=== PATIENT | female | born 1990 ===

== ENCOUNTER 2018-08-29 05:38 | Inpatient (IN) ==
[2018-08-29] MEDS ORDERED: ONDANSETRON 4 MG/2 ML VIAL IV PRN (06:03)
[2018-08-29] MEDS ORDERED: MEPERIDINE 50 MG/1 ML VIAL IV PRN (06:03)
[2018-08-29 06:30] LABS: Basophils % 0.2 % (0.0-0.8); Eosinophils # 0.1 10*3/uL (0.0-0.87); Eosinophils % 1.3 % (0.00-10.9); Hemoglobin 9.8 GM/DL (12.0-16.0); Immature Granulocytes % 0.5 %; Immature Granulocytes Absolute 0.03 #; Lymphocytes % 33.4 % (21.3-54.2); Mean Corpuscular HGB Conc 31.6 GM/DL (32-36); Mean Corpuscular Hemoglobin 28 PG (27-34); Mean Corpuscular Volume 88.3 FL (87-102); Mean Platelet Volume 9.8 FL (9.6-12.0); Monocytes # 0.4 10*3/uL (0.11-0.8); Monocytes % 6.7 % (1.7-12.7); Neutrophils # 3.5 10*3/uL (1.4-7.4); Neutrophils % 57.9 % (38.7-73.9); Platelet Count 299 T/CUMM (130-400); Red Blood Count 3.51 MC/CUMM (3.8-5.5); Red Cell Distribution Width 13.1 % (9.3-17.3)
[2018-08-29] MEDS ORDERED: LACTATED RINGERS 1,000 ML IV SCH (06:30)
[2018-08-29] MEDS: OXYTOCIN/LR 20 UNIT/1,000 ML BAG IV SCH ×2 (06:43→16:59)
[2018-08-29 06:47] LABS: Alanine Aminotransferase 23 U/L (13-56); Albumin 2.3 G/DL (3.4-5.0); Alkaline Phosphatase 233 U/L (45-117); Aspartate Amino Transferase 23 U/L (0-37); Bilirubin,Total < 0.39 MG/DL (0.2-1.0); Blood Urea Nitrogen 14 MG/DL (7-18); Calcium 7.8 MG/DL (8.5-10.1); Glucose 74 MG/DL (74-106); Sodium 136 MMOL/L (136-145); Total Protein 6.8 G/DL (6.4-8.3)
[2018-08-29] MEDS ORDERED: PROMETHAZINE 25 MG/1 ML VIAL IM ONE (08:20)
[2018-08-29] MEDS ORDERED: FAMOTIDINE 20 MG/2 ML VIAL IV ONE (08:20)
[2018-08-29] MEDS ORDERED: NALOXONE 0.4 MG/ML VIAL IV PRN (08:20)
[2018-08-29] MEDS ORDERED: CITRIC ACID/SODIUM CITRATE 30 ML UDCUP PO ONE (08:20)
[2018-08-29] MEDS ORDERED: hydrOXYzine HCL 25 MG/1 ML VIAL IM PRN (08:20)
[2018-08-29] MEDS ORDERED: diphenhydrAMINE 50 MG/1 ML VIAL IV PRN (08:20)
[2018-08-29] MEDS ORDERED: ePHEDrine 50 MG/ML AMP IV PRN (08:20)
[2018-08-29] MEDS ORDERED: fentaNYL 2 MCG/ROPIV 0.2% EPID 100 ML EPIDURAL SCH (08:30)
[2018-08-29 11:46] LABS: Apearance,Urine CLEAR (Clear); Bilirubin,Urine Negative (Negative); Blood, Urine Negative (Negative); Glucose,Urine (UA) Negative (Negative); Ketones,Urine Negative (Negative); Mucus,Urine Occasional /LPF (Occasional); Nitrite,Urine Negative (Negative); Protein,Urine 30 MG/DL; RBC,Urine 4 /HPF (0-4); Squamous Epithelial Cell,Urine Occasional /HPF (0-10); Urine Color Yellow (Yellow); Urine Specific Gravity 1.028 (1.001-1.035); Urine Urobilinogen < 2.0 EU/DL (0.2-1.0); WBC,Urine <1 /HPF (0-6)
[2018-08-29] MEDS ORDERED: miSOPROStol 200 MCG TABLET ONE (14:07)
[2018-08-29] MEDS ORDERED: METHYLERGONOVINE 0.2 MG/1 ML AMP ONE (14:08)
[2018-08-29] MEDS ORDERED: CARBOPROST TROMETHAMINE 250 MCG/ML AMP IM ONE (14:08)
[2018-08-29] MEDS ORDERED: METHYLERGONOVINE 0.2 MG/1 ML AMP IM ONE (15:00)
[2018-08-29] MEDS ORDERED: ACETAMINOPHEN/CODEINE 300-30 MG TABLET PO PRN (17:01)
[2018-08-29] MEDS ORDERED: BISACODYL 10 MG SUPP RECTAL PRN (17:01)
[2018-08-29] MEDS ORDERED: MEASLES/MUMPS/RUBELLA VACCINE 0.5 ML VIAL SUBCUT ONE (17:01)
[2018-08-29] MEDS ORDERED: oxyCODONE/ACETAMINOPHEN 5-325 MG TABLET PO PRN ×2 (17:01)
[2018-08-29] MEDS ORDERED: DIPH/TET/ACEL PERT BOOSTER VACCINE 0.5 ML VIAL IM ONE (17:01)
[2018-08-29] MEDS ORDERED: RHO(D) IMMUNE GLOBULIN 300 MCG SYRINGE IM ONE (17:01)
[2018-08-29] MEDS ORDERED: BENZOCAINE 20%/MENTHOL 0.5% SPRAY 56 GM CAN TOP PRN (17:01)
[2018-08-29] MEDS ORDERED: LANOLIN 50% CREAM 0.3 OZ TUBE TOP PRN (17:01)
[2018-08-29] MEDS ORDERED: ACETAMINOPHEN 325 MG TABLET PO PRN (17:01)
[2018-08-29] MEDS ORDERED: WITCH HAZEL PADS 100/JAR TOP PRN (17:01)
[2018-08-29] MEDS ORDERED: HYDROCORTISONE 2.5% RECTAL CREAM 30 GM TUBE TOP PRN (17:01)
[2018-08-29] MEDS: DOCUSATE SODIUM 100 MG CAPSULE PO SCH (20:49)
[2018-08-30] MEDS: IBUPROFEN 800 MG TABLET PO PRN ×3 (03:16→23:55)
[2018-08-30 06:00] LABS: Basophils % 0.1 % (0.0-0.8); Eosinophils # 0.1 10*3/uL (0.0-0.87); Eosinophils % 1.1 % (0.00-10.9); Hematocrit 26.1 VOL% (35.7-47.0); Hemoglobin 8.4 GM/DL (12.0-16.0); Immature Granulocytes % 0.6 %; Immature Granulocytes Absolute 0.06 #; Lymphocytes # 2.3 10*3/uL (1.4-4.0); Lymphocytes % 23.3 % (21.3-54.2); Mean Corpuscular HGB Conc 32.2 GM/DL (32-36); Mean Corpuscular Hemoglobin 28 PG (27-34); Mean Corpuscular Volume 86.7 FL (87-102); Mean Platelet Volume 9.7 FL (9.6-12.0); Monocytes # 0.5 10*3/uL (0.11-0.8); Monocytes % 5.4 % (1.7-12.7); Neutrophils # 6.7 10*3/uL (1.4-7.4); Neutrophils % 69.5 % (38.7-73.9); Platelet Count 232 T/CUMM (130-400); Red Blood Count 3.01 MC/CUMM (3.8-5.5); Red Cell Distribution Width 13.1 % (9.3-17.3); White Blood Count 9.7 T/CUMM (4-12)
[2018-08-30] MEDS: FERROUS SULFATE 325 MG TABLET PO SCH ×2 (08:57→21:18)
[2018-08-30] MEDS: DOCUSATE SODIUM 100 MG CAPSULE PO SCH ×2 (08:57→21:18)
[2018-08-30 10:52] LABS: Hemoglobin 8.7 GM/DL (12.0-16.0)
[2018-08-31 08:30] VITALS: BP 144/77
[2018-08-31] MEDS: FERROUS SULFATE 325 MG TABLET PO SCH (08:47)
[2018-08-31] MEDS: DOCUSATE SODIUM 100 MG CAPSULE PO SCH (08:47)
== END 2018-08-31 12:00 | disposition home or self-care (01) | DRG 807 ==
LOC: N.LDOUT 05:38 → N.LD 05:46 → N.OB 17:07
PROVIDERS: ADMIT Obstetrics & Gynecology; ATTEND Obstetrics & Gynecology

== ENCOUNTER 2021-01-13 00:11 | Inpatient (IN) ==
[2021-01-13] MEDS ORDERED: LACTATED RINGERS 1,000 ML IV ONE ×2 (00:20→07:22)
[2021-01-13] MEDS ORDERED: MEPERIDINE 50 MG/1 ML VIAL IV PRN (00:20)
[2021-01-13] MEDS ORDERED: ONDANSETRON 4 MG/2 ML VIAL IV PRN ×2 (00:20→16:01)
[2021-01-13] MEDS ORDERED: AMPICILLIN INJ 2,000 MG in SODIUM CHLORIDE 0.9% 100 ML IV ONE ×2 (00:27→04:00)
[2021-01-13] MEDS ORDERED: LACTATED RINGERS 1,000 ML IV SCH (00:30)
[2021-01-13 00:48] LABS: Eosinophils # 0.1 10*3/uL (0.0-0.87); Eosinophils % 0.9 % (0.00-10.9); Hematocrit 30.9 VOL% (35.7-47.0); Hemoglobin 9.6 GM/DL (12.0-16.0); Immature Granulocytes % 0.7 %; Immature Granulocytes Absolute 0.05 #; Lymphocytes # 1.7 10*3/uL (1.4-4.0); Lymphocytes % 24.8 % (21.3-54.2); Mean Corpuscular HGB Conc 31.1 GM/DL (32-36); Mean Corpuscular Volume 90.1 FL (87-102); Mean Platelet Volume 8.8 FL (9.6-12.0); Monocytes % 7.2 % (1.7-12.7); Neutrophils % 66.4 % (38.7-73.9); Platelet Count 326 T/CUMM (130-400); Red Blood Count 3.43 MC/CUMM (3.8-5.5); Red Cell Distribution Width 14.9 % (9.3-17.3); White Blood Count 6.9 T/CUMM (4-12)
[2021-01-13 01:12] LABS: Alanine Aminotransferase 26 U/L (13-56); Albumin 2.5 G/DL (3.4-5.0); Alkaline Phosphatase 208 U/L (45-117); Aspartate Amino Transferase 33 U/L (0-37); Bilirubin,Total < 0.39 MG/DL (0.2-1.0); Blood Urea Nitrogen 11 MG/DL (7-18); Calcium 8.2 MG/DL (8.5-10.1); Carbon Dioxide 25 MMOL/L (21-32); Estimated Glom Filtration Rate 144 ML/MIN; Glucose 78 MG/DL (74-106); Osmolality,Calculated 274.5 MOS/KG (273-304); Potassium 3.8 MMOL/L (3.5-5.1); Sodium 139 MMOL/L (136-145); Total Protein 6.6 G/DL (6.4-8.2)
[2021-01-13 03:00] LABS: Hypochromasia 1+; Microcytosis 1+; Platelet Estimate Normal
[2021-01-13] MEDS ORDERED: OXYTOCIN/LR 20 UNIT/1,000 ML BAG IV SCH (04:00)
[2021-01-13] MEDS ORDERED: CITRIC ACID/SODIUM CITRATE 30 ML UDCUP PO ONE (07:22)
[2021-01-13] MEDS ORDERED: FAMOTIDINE 20 MG/2 ML VIAL IV ONE (07:22)
[2021-01-13] MEDS ORDERED: ePHEDrine 50 MG/ML VIAL IV PRN (07:23)
[2021-01-13] MEDS ORDERED: diphenhydrAMINE 50 MG/1 ML VIAL IV PRN (07:23)
[2021-01-13] MEDS ORDERED: LACTATED RINGERS 250 ML IV PRN (07:23)
[2021-01-13] MEDS ORDERED: ONDANSETRON 4 MG/2 ML VIAL IV ONE (07:23)
[2021-01-13] MEDS ORDERED: NALOXONE 0.4 MG/ML VIAL IV PRN (07:23)
[2021-01-13] MEDS ORDERED: fentaNYL 2 MCG/ROPIV 0.2% EPID 100 ML EPIDURAL SCH (07:30)
[2021-01-13] MEDS ORDERED: miSOPROStoL 200 MCG TABLET ONE (08:40)
[2021-01-13] MEDS ORDERED: TRANEXAMIC ACID 1,000 MG/10 ML VIAL ONE (08:40)
[2021-01-13] MEDS ORDERED: METHYLERGONOVINE 0.2 MG/1 ML AMP ONE (08:40)
[2021-01-13] MEDS ORDERED: CARBOPROST TROMETHAMINE 250 MCG/ML AMP IM ONE (08:40)
[2021-01-13] MEDS ORDERED: SODIUM CHLORIDE 0.9% 0 ML IV ONE (08:41)
[2021-01-13] MEDS: AMPICILLIN INJ 1,000 MG in SODIUM CHLORIDE 0.9% 100 ML IV SCH ×2 (08:48→13:21)
[2021-01-13 10:24] LABS: Bilirubin,Urine Negative (Negative); Blood, Urine Negative (Negative); Glucose,Urine (UA) Negative (Negative); Ketones,Urine 5 mg/dL (Negative); Mucus,Urine Few /LPF (Occasional); Nitrite,Urine Negative (Negative); Protein,Urine Negative; RBC,Urine <1 /HPF (0-4); Squamous Epithelial Cell,Urine Occasional /HPF (0-10); Urine Appearance CLEAR (Clear); Urine Color Yellow (Yellow); Urine Specific Gravity 1.031 (1.001-1.035); Urine Urobilinogen < 2.0 EU/DL (0.2-1.0)
[2021-01-13] MEDS ORDERED: OXYTOCIN/LR 30 UNIT/1,000 ML BAG IV ONE (14:55)
[2021-01-13 15:55] LABS: Cord Arterial Blood HCO3 21.7 MMOL/L
[2021-01-13 15:57] LABS: Cord Venous Blood HCO3 22.2 MMOL/L; Cord Venous Blood PCO2 41.7 MMHG; Cord Venous Blood PO2 35.2
[2021-01-13] MEDS ORDERED: RHO(D) IMMUNE GLOBULIN 300 MCG SYRINGE IM ONE (16:01)
[2021-01-13] MEDS ORDERED: LANOLIN 50% CREAM 0.3 OZ TUBE TOP PRN (16:01)
[2021-01-13] MEDS ORDERED: DIPH/TET/ACEL PERT BOOSTER VACCINE 0.5 ML VIAL IM ONE (16:01)
[2021-01-13] MEDS ORDERED: oxyCODONE/ACETAMINOPHEN 5-325 MG TABLET PO PRN ×2 (16:01)
[2021-01-13] MEDS ORDERED: BISACODYL 10 MG SUPP RECTAL PRN (16:01)
[2021-01-13] MEDS ORDERED: ACETAMINOPHEN 325 MG TABLET PO PRN (16:01)
[2021-01-13] MEDS ORDERED: MEASLES/MUMPS/RUBELLA VACCINE 0.5 ML VIAL SUBCUT ONE (16:01)
[2021-01-13] MEDS ORDERED: BENZOCAINE 20%/MENTHOL 0.5% SPRAY 56 GM CAN TOP PRN (16:01)
[2021-01-13] MEDS ORDERED: HYDROCORTISONE 2.5% RECTAL CREAM 30 GM TUBE TOP PRN (16:01)
[2021-01-13] MEDS ORDERED: OXYTOCIN/LR 20 UNIT/1,000 ML BAG IV ONE (16:01)
[2021-01-13] MEDS ORDERED: WITCH HAZEL PADS 100/JAR TOP PRN (16:01)
[2021-01-13] MEDS ORDERED: METHYLERGONOVINE 0.2 MG/1 ML AMP IM ONE (16:10)
[2021-01-13] MEDS: IBUPROFEN 800 MG TABLET PO PRN (19:28)
[2021-01-14] MEDS: DOCUSATE SODIUM 100 MG CAPSULE PO SCH ×3 (00:45→20:58)
[2021-01-14 05:30] LABS: Basophils % 0.1 % (0.0-0.8); Eosinophils # 0.1 10*3/uL (0.0-0.87); Eosinophils % 1.1 % (0.00-10.9); Hematocrit 26.6 VOL% (35.7-47.0); Hemoglobin 8.9 GM/DL (12.0-16.0); Immature Granulocytes % 0.3 %; Immature Granulocytes Absolute 0.03 #; Lymphocytes % 20.7 % (21.3-54.2); Mean Corpuscular HGB Conc 33.5 GM/DL (32-36); Mean Corpuscular Volume 86.1 FL (87-102); Mean Platelet Volume 9.4 FL (9.6-12.0); Monocytes % 5.1 % (1.7-12.7); Neutrophils % 72.7 % (38.7-73.9); Platelet Count 283 T/CUMM (130-400); Red Blood Count 3.09 MC/CUMM (3.8-5.5); Red Cell Distribution Width 14.7 % (9.3-17.3); White Blood Count 9.4 T/CUMM (4-12)
[2021-01-14] MEDS: IBUPROFEN 800 MG TABLET PO PRN (09:02)
[2021-01-15 07:40] VITALS: BP 132/76
[2021-01-15] MEDS: DOCUSATE SODIUM 100 MG CAPSULE PO SCH (08:06)
[2021-01-15] MEDS ORDERED: FERROUS SULFATE 325 MG TABLET PO SCH (09:00)
== END 2021-01-15 12:45 | disposition home or self-care (01) | DRG 560 ==
LOC: N.LD 00:11 → N.OB 18:21
PROVIDERS: ADMIT Obstetrics & Gynecology; ATTEND Obstetrics & Gynecology

== ENCOUNTER 2022-01-13 00:10 | Inpatient (IN) ==
[2022-01-13] MEDS ORDERED: METHYLERGONOVINE 0.2 MG/1 ML AMP IM PRN ×2 (00:50→09:51)
[2022-01-13] MEDS ORDERED: ONDANSETRON 4 MG/2 ML VIAL IV PRN ×2 (00:50→10:53)
[2022-01-13] MEDS ORDERED: TRANEXAMIC ACID 1,000 MG in SODIUM CHLORIDE 0.9% 100 ML IV PRN ×2 (00:50→09:51)
[2022-01-13] MEDS ORDERED: BUTORPHANOL 2 MG/ML VIAL IV PRN (00:50)
[2022-01-13] MEDS ORDERED: OXYTOCIN/LR 20 UNIT/1,000 ML BAG IV ONE ×4 (00:50→10:53)
[2022-01-13] MEDS ORDERED: miSOPROStoL 200 MCG TABLET RECTAL PRN ×2 (00:50→09:51)
[2022-01-13] MEDS ORDERED: MEPERIDINE 50 MG/1 ML VIAL IV PRN (00:50)
[2022-01-13] MEDS ORDERED: CARBOPROST TROMETHAMINE 250 MCG/ML AMP IM PRN ×2 (00:50→09:51)
[2022-01-13] MEDS ORDERED: LACTATED RINGERS 500 ML IV PRN (00:50)
[2022-01-13] MEDS: LACTATED RINGERS 1,000 ML IV SCH ×2 (00:56→07:53)
[2022-01-13] MEDS ORDERED: LACTATED RINGERS 250 ML IV ONE (01:00)
[2022-01-13 01:05] LABS: Basophils % 0.1 % (0.0-0.8); Eosinophils # 0.1 10*3/uL (0.0-0.87); Eosinophils % 1.1 % (0.00-10.9); Hematocrit 29.2 VOL% (35.7-47.0); Hemoglobin 9.5 GM/DL (12.0-16.0); Immature Granulocytes % 0.6 %; Immature Granulocytes Absolute 0.04 #; Lymphocytes # 1.9 10*3/uL (1.4-4.0); Lymphocytes % 25.7 % (21.3-54.2); Mean Corpuscular HGB Conc 32.5 GM/DL (32-36); Mean Corpuscular Volume 84.6 FL (87-102); Mean Platelet Volume 9.4 FL (9.6-12.0); Monocytes # 0.5 10*3/uL (0.11-0.8); Monocytes % 6.7 % (1.7-12.7); Neutrophils % 65.8 % (38.7-73.9); Platelet Count 380 T/CUMM (130-400); Red Blood Count 3.45 MC/CUMM (3.8-5.5); Red Cell Distribution Width 14.4 % (9.3-17.3); White Blood Count 7.2 T/CUMM (4-12)
[2022-01-13 01:13] LABS: Bacteria,Urine Occasional /HPF (Few); Bilirubin,Urine Negative (Negative); Blood, Urine Negative (Negative); Glucose,Urine (UA) Negative (Negative); Ketones,Urine Negative (Negative); Mucus,Urine Occasional /LPF (Occasional); Nitrite,Urine Negative (Negative); Protein,Urine Negative (Negative); RBC,Urine <1 /HPF (0-4); Squamous Epithelial Cell,Urine Occasional /HPF (0-10); Urine Appearance Clear (Clear); Urine Color Yellow (Yellow); Urine Specific Gravity >= 1.030 (1.001-1.035)
[2022-01-13 01:14] LABS: Urine Urobilinogen 0.2 eU/dL (<2.0)
[2022-01-13] MEDS ORDERED: OXYTOCIN/LR 20 UNIT/1,000 ML BAG IV SCH (05:37)
[2022-01-13] MEDS ORDERED: METHYLERGONOVINE 0.2 MG/1 ML AMP ONE (08:31)
[2022-01-13] MEDS ORDERED: SODIUM CHLORIDE 0.9% 0 ML IV ONE (08:31)
[2022-01-13] MEDS ORDERED: miSOPROStoL 200 MCG TABLET ONE (08:31)
[2022-01-13] MEDS ORDERED: TRANEXAMIC ACID 1,000 MG/10 ML VIAL ONE (08:31)
[2022-01-13] MEDS ORDERED: CARBOPROST TROMETHAMINE 250 MCG/ML AMP IM ONE (08:31)
[2022-01-13] MEDS ORDERED: CITRIC ACID/SODIUM CITRATE 30 ML UDCUP PO ONE (09:51)
[2022-01-13] MEDS ORDERED: BUPIVACAINE SPINAL 0.75% 2 ML AMP SPINAL ONE (09:54)
[2022-01-13] MEDS ORDERED: fentaNYL 100 MCG/2 ML VIAL ONE ×2 (09:54→10:52)
[2022-01-13] MEDS ORDERED: CITRIC ACID/SODIUM CITRATE 30 ML UDCUP ONE (09:55)
[2022-01-13] MEDS ORDERED: FAMOTIDINE 20 MG/2 ML VIAL IV ONE ×2 (09:55→11:06)
[2022-01-13] MEDS ORDERED: buprenorphine HCL 0.3 MG/ML VIAL ONE (09:58)
[2022-01-13] MEDS ORDERED: LACTATED RINGERS 1,000 ML IV SCH ×2 (10:00→11:00)
[2022-01-13] MEDS ORDERED: ceFAZolin 3,000 MG in SYRINGE 1 EACH IV ONE (10:00)
[2022-01-13] MEDS ORDERED: OXYTOCIN 10 UNIT/ML VIAL ONE (10:12)
[2022-01-13] MEDS ORDERED: SODIUM CHLORIDE 0.9% 1,000 ML IV PRN ×2 (10:23→11:38)
[2022-01-13 10:31] LABS: Cord Arterial Blood HCO3 19.4 MMOL/L
[2022-01-13 10:34] LABS: Cord Venous Blood HCO3 19.6 MMOL/L; Cord Venous Blood PO2 53.1
[2022-01-13] MEDS ORDERED: SEVOFLURANE 1 UNIT/15 MINUTE INH ONE (10:43)
[2022-01-13] MEDS ORDERED: propofoL 200 MG/20 ML VIAL IV ONE (10:43)
[2022-01-13] MEDS ORDERED: SUCCINYLCHOLINE 200 MG/10 ML VIAL ONE (10:43)
[2022-01-13] MEDS ORDERED: PHENYLEPHRINE 1 MG/10 ML SYRINGE IV ONE (10:45)
[2022-01-13] MEDS ORDERED: ONDANSETRON 4 MG/2 ML VIAL ONE (10:45)
[2022-01-13] MEDS ORDERED: ACETAMINOPHEN INJ 1,000 MG/100 ML VIAL IV ONE (10:47)
[2022-01-13] MEDS ORDERED: IBUPROFEN 800 MG TABLET PO PRN (10:53)
[2022-01-13] MEDS ORDERED: SIMETHICONE CHEW 80 MG TABLET PO PRN (10:53)
[2022-01-13] MEDS ORDERED: ACETAMINOPHEN 325 MG TABLET PO PRN (10:53)
[2022-01-13] MEDS ORDERED: RHO(D) IMMUNE GLOBULIN 300 MCG SYRINGE IM ONE (10:53)
[2022-01-13] MEDS ORDERED: ePHEDrine 50 MG/ML VIAL IV PRN (11:06)
[2022-01-13] MEDS ORDERED: PROMETHAZINE 25 MG/1 ML VIAL IM ONE (11:06)
[2022-01-13] MEDS: ceFAZolin 2,000 MG in SODIUM CHLORIDE 0.9% 100 ML IV SCH (17:48)
[2022-01-13 19:07] LABS: Basophils % 0.1 % (0.0-0.8); Eosinophils % 0.2 % (0.00-10.9); Hematocrit 29.7 VOL% (35.7-47.0); Hemoglobin 9.6 GM/DL (12.0-16.0); Immature Granulocytes % 0.6 %; Immature Granulocytes Absolute 0.07 #; Lymphocytes # 1.5 10*3/uL (1.4-4.0); Lymphocytes % 12.6 % (21.3-54.2); Mean Corpuscular HGB Conc 32.3 GM/DL (32-36); Mean Corpuscular Volume 87.9 FL (87-102); Mean Platelet Volume 9.6 FL (9.6-12.0); Monocytes # 0.6 10*3/uL (0.11-0.8); Neutrophils % 81.5 % (38.7-73.9); Platelet Count 248 T/CUMM (130-400); Red Blood Count 3.38 MC/CUMM (3.8-5.5); Red Cell Distribution Width 14.4 % (9.3-17.3); White Blood Count 12.2 T/CUMM (4-12)
[2022-01-13] MEDS: DOCUSATE SODIUM 100 MG CAPSULE PO SCH (20:32)
[2022-01-14] MEDS: ceFAZolin 2,000 MG in SODIUM CHLORIDE 0.9% 100 ML IV SCH (03:18)
[2022-01-14] MEDS ORDERED: ceFAZolin 2,000 MG/50 ML DUPLEX IV ONE (03:30)
[2022-01-14 06:15] LABS: Basophils % 0.1 % (0.0-0.8); Eosinophils # 0.1 10*3/uL (0.0-0.87); Eosinophils % 0.8 % (0.00-10.9); Hematocrit 26.6 VOL% (35.7-47.0); Hemoglobin 8.8 GM/DL (12.0-16.0); Immature Granulocytes % 0.7 %; Immature Granulocytes Absolute 0.07 #; Lymphocytes # 1.7 10*3/uL (1.4-4.0); Lymphocytes % 17.1 % (21.3-54.2); Mean Corpuscular HGB Conc 33.1 GM/DL (32-36); Mean Corpuscular Volume 86.9 FL (87-102); Mean Platelet Volume 9.8 FL (9.6-12.0); Monocytes # 0.5 10*3/uL (0.11-0.8); Monocytes % 5.3 % (1.7-12.7); Platelet Count 254 T/CUMM (130-400); Red Blood Count 3.06 MC/CUMM (3.8-5.5); Red Cell Distribution Width 14.4 % (9.3-17.3); White Blood Count 9.9 T/CUMM (4-12)
[2022-01-14] MEDS: METOCLOPRAMIDE 10 MG TABLET PO SCH ×2 (09:17→18:49)
[2022-01-14] MEDS: MULTIVITAMIN (PRENATAL) TABLET PO SCH (09:18)
[2022-01-14] MEDS: FERROUS SULFATE 325 MG TABLET PO SCH ×2 (09:18→21:47)
[2022-01-14] MEDS: valACYclovir 500 MG TABLET PO SCH (09:18)
[2022-01-14] MEDS: DOCUSATE SODIUM 100 MG CAPSULE PO SCH ×2 (09:18→21:47)
[2022-01-14] MEDS: MAGNESIUM HYDROXIDE SUSP 30 ML UDCUP PO PRN (21:47)
[2022-01-15] MEDS: METOCLOPRAMIDE 10 MG TABLET PO SCH ×2 (00:22→09:54)
[2022-01-15 09:13] VITALS: BP 134/71
[2022-01-15] MEDS: MULTIVITAMIN (PRENATAL) TABLET PO SCH (09:54)
[2022-01-15] MEDS: valACYclovir 500 MG TABLET PO SCH (09:54)
[2022-01-15] MEDS: MAGNESIUM HYDROXIDE SUSP 30 ML UDCUP PO PRN (09:54)
[2022-01-15] MEDS: DOCUSATE SODIUM 100 MG CAPSULE PO SCH (09:54)
[2022-01-15] MEDS: FERROUS SULFATE 325 MG TABLET PO SCH (09:54)
== END 2022-01-15 13:43 | disposition home or self-care (01) | DRG 540 ==
LOC: N.LD 00:10 → N.OB 14:04
PROVIDERS: ADMIT Obstetrics & Gynecology; ATTEND Obstetrics & Gynecology
PROC: LDCSECT (ICD-10-PCS; 2022-01-13 10:00)